=== PATIENT | female | born 1950 | race Two or more races ===

== ENCOUNTER 2017-01-02 22:27 | Emergency (ER) | payer OTHER ==
[~2017-01-02] VITALS: Ht 162.6 cm; Wt 63.5 kg
--- NOTE | 2017-01-02 22:40 | NUR ---
TO BED 10 A 66 YO FEMALE PT BIBA#878 PT C/O HAVING HBP AND FEELING LIGHTED HEADED X 1 DAY. PER EMS PATIENT TOOK CATAPRESS AT 1830 TODAY WITHOUT RELIEF AND SAID HER BP IS USUALLY ON THE RANGE OF 140-160 - SBP. PATIENT IS AAOX4, NAD NOTED. VSS. NONDIAPHORETIC. PLACED ON CARDIAC AND VS MONITOR. GOWNED. COMFORT MEASURES RENDERED.
--- NOTE | 2017-01-02 22:50 | NUR ---
Dr Bishop at bedside to eval.
--- NOTE | 2017-01-02 23:23 | NUR ---
Patient discharged to home in stable condition. Written and verbal after care instructions given. Patient verbalizes understanding of instruction. Patient is ambulatory with steady gait, accompanied by family going home. no further complaints.
[2017-01-02 23:24] VITALS: BP 159/74
== END 2017-01-02 23:24 | disposition home or self-care (01) ==
LOC: ER 22:28
DX: I10 Essential (primary) hypertension (principal)
CPT/HCPCS: A4606; Z7610

== ENCOUNTER 2018-11-26 08:46 | Emergency (ER) | payer MEDICARE, OTHER ==
[~2018-11-26] VITALS: Ht 165.1 cm; Wt 81.6 kg
--- NOTE | 2018-11-26 08:51 | NUR ---
PT BIB DAUGHTER FROM HOME C/O PALPITATIONS STARTED 4 AM THIS MORNING, -CP, PT IS AAOX3 [place] SPEAKING ONLY, NOT IN RESPIRATORY DISTRESS, HOOKED TO MONITOR, KEPT RESTED AND COMFORTABLE, WILL CONTINUE TO MONITOR.
--- NOTE | 2018-11-26 09:10 | NUR ---
IV LINE ESTABLISHED, BLOOD DRAWNED AND SENT TO LAB.
--- NOTE | 2018-11-26 09:13 | NUR ---
SEEN AND EXAMINED BY .
[2018-11-26] MEDS ORDERED: METO-356 PO (09:15)
[2018-11-26] MEDS ORDERED: ASPI81TA44 PO (09:15)
[2018-11-26] MEDS ORDERED: HYDR-4076 PO (09:15)
[2018-11-26] MEDS ORDERED: AMLO10TA7 PO (09:15)
[2018-11-26] MEDS ORDERED: ATOR40TA PO (09:15)
[2018-11-26] MEDS ORDERED: EDARBYCLOR PO (09:16)
--- NOTE | 2018-11-26 09:16 | NUR ---
URINAL GIVEN BUT UNABLE TO PROVIDE URINE SPECIMEN.
[2018-11-26] MEDS ORDERED: IV NS 0.9% 500 ML BAG IV ONE (09:30)
--- NOTE | 2018-11-26 09:31 | NUR ---
ROUGE SIFTER AND MILLER AT BEDSIDE FOR XRAY.
[2018-11-26 09:37] LABS: BASOPHILS % (AUTO) 0.2 % (0.0-2.0); EOSINOPHILS % (AUTO) 1.4 % (0.0-6.0); HEMATOCRIT 32 % (33-45); HEMOGLOBIN 11.1 g/dL (11.5-14.8); LYMPHOCYTES # (AUTO) 0.5 /CMM (0.8-4.8); LYMPHOCYTES % (AUTO) 3.3 % (20.0-44.0); MEAN CORPUSCULAR HGB CONC 35 g/dl (31.0-36.0); MEAN CORPUSCULAR VOLUME 90 fL (82-100); MONOCYTES # (AUTO) 0.5 /CMM (0.1-1.30); MONOCYTES % (AUTO) 3.1 % (2.0-12.0); NEUTROPHILS # (AUTO) 13.8 /CMM (1.8-8.9); PLATELET COUNT (AUTO) 245 /CMM (150-450); RED BLOOD CELL COUNT(AUTO) 3.55 MIL/uL (4.0-5.2)
[2018-11-26 09:42] LABS: CALCIUM, SERUM 8.8 mg/dL (8.5-10.1); CARBON DIOXIDE 27 mmol/L (21-32); CHLORIDE 103 mmol/L (98-107); CREATININE 0.9 mg/dL (0.6-1.3); GLUCOSE 123 mg/dL (74-106); POTASSIUM 3.7 mmol/L (3.5-5.1); SODIUM SERUM 140 mmol/L (136-145); UREA NITROGEN, BLOOD 24 mg/dL (7-18)
--- NOTE | 2018-11-26 09:46 | NUR ---
URINE SPECIMEN COLLECTED AND SENT TO LAB.
[2018-11-26 09:50] LABS: APPEARANCE,URINE Clear (CLEAR); BILIRUBIN,URINE Negative (NEGATIVE); BLOOD, URINE Trace-intact Ery/uL (NEGATIVE); COLOR,URINE Yellow (YELLOW); KETONES,URINE Negative (NEGATIVE); LEUKOCYTE ESTERASE ,URINE Negative (NEGATIVE); NITRITE, URINE Negative (NEGATIVE); PH,URINE 5.5 (5.0-8.0); PROTEIN,URINE Negative (NEGATIVE); UGLUCOSE Negative (NEGATIVE); UROBILINOGEN,URINE 0.2 EU/dL (0.2)
[2018-11-26 09:53] LABS: RBC,URINE 0-2 /HPF (0-2); WBC,URINE 0-2 /HPF (0-3)
[2018-11-26 09:54] LABS: BACTERIA,URINE Rare /HPF (None Seen); SQUAMOUS EPITHELIAL CELL,UR Few /HPF (None Seen)
[2018-11-26 09:56] LABS: ALANINE AMINOTRANSFERASE 28 U/L (12-78); ALBUMIN 3.9 g/dL (3.4-5.0); ALKALINE PHOSPHATASE 79 U/L (46-116); ASPARTATE AMINOTRANSFERASE 25 U/L (15-37); B-TYPE NATRIURETIC PEPTIDE 668 PG/ML (0-125); BILIRUBIN,DIRECT 0.1 mg/dL (0.0-0.2); BILIRUBIN,TOTAL 0.3 mg/dL (0.2-1.0); TOTAL PROTEIN, SERUM 7.7 g/dL (6.4-8.2)
[2018-11-26 11:05] VITALS: BP 129/61
--- NOTE | 2018-11-26 11:23 | NUR ---
IV removed. Catheter intact and site benign. Pressure and 4x4 applied to site. No bleeding noted.Patient discharged to home in stable condition. Written and verbal after care instructions given. Patient verbalizes understanding of instruction.
== END 2018-11-26 11:26 | disposition home or self-care (01) ==
LOC: ER 08:53
DX: R00.2 Palpitations (principal); I10 Essential (primary) hypertension
CPT/HCPCS: 36415; 71045; 80048; 80076; 81001; 83605; 83880; 84145; 84484; 85025; 85730; 87040 ×2; 87086; 93005; 99284; J7040; 81000-TC

== ENCOUNTER 2021-11-21 12:00 | Outpatient (CLI) | payer MEDICARE, OTHER ==
[~2021-11-21 12:00] MED LIST: AMLO-213 PO; ASPI81TA44 PO; ATOR40TA PO; EDARBYCLOR PO; HYDR-4076 PO; METO25TA4 PO
[2021-11-22] MEDS ORDERED: DIATR MEGLU/DIATRIZOATE SODIUM 30 ML BOTTLE (GASTROGRAPHIN) ONE (15:22)
== END 2021-11-21 23:59 | disposition home or self-care (01) ==
LOC: CT 12:00
PROVIDERS: ATTEND Internal Medicine Interventional Cardiology
DX: R91.8 Other nonspecific abnormal finding of lung field (principal)
CPT/HCPCS: 71250-TC; Q9963